=== PATIENT | female | born 1945 | race Caucasian/White ===

== ENCOUNTER → 2018-03-06 | Outpatient (REF) | payer MEDICARE ==
[~2018-03-06] MED LIST: NAPROSYN500 MG PO
[2018-03-06 09:42] LABS: PROTHROMBIN TIME 20.9 SECONDS (9.0-12.5)
== END | disposition home or self-care (01) ==
LOC: LAB 08:51
PROVIDERS: ATTEND Internal Medicine
DX: I82.413 Acute embolism and thrombosis of femoral vein, bilateral (principal)

== ENCOUNTER 2018-05-18 07:25 | Emergency (ER) | payer MEDICARE ==
[~2018-05-18] VITALS: Ht 152.4 cm; Wt 59.0 kg
[2018-05-18] MEDS ORDERED: CLOPIDOGREL75 MG PO (07:44)
[2018-05-18] MEDS ORDERED: ATORVASTATIN CA10 MG PO (07:44)
[2018-05-18] MEDS ORDERED: WARFARIN2.5 MG PO (07:46)
[2018-05-18] MEDS ORDERED: AMLODIPINE5 MG PO (07:47)
[2018-05-18 08:23] LABS: HEMATOCRIT 38.3 % (37.0-47.0); IMMATURE GRANULOCYTES 0.2 % (0.0-5.0); MEAN CORPUSCULAR HGB 28.6 pG CALC (26.0-32.0); MEAN CORPUSCULAR HGB CONC 31.3 g/L CALC (32.0-36.0); RED BLOOD COUNT 4.19 mill/uL (4.20-5.60); RED CELL DISTRI WIDTH 16.1 % (11.5-15.5)
[2018-05-18 08:36] LABS: INTERNATIONAL NORMALIZED RATIO 2.1 RATIO (0.7-1.3); PROTHROMBIN TIME 22.1 SECONDS (9.0-12.5)
[2018-05-18 08:38] LABS: ALBUMIN 3.9 g/dL (3.2-5.0); ALKALINE PHOSPHATASE 129 u/l (38-126); ANION GAP 15 (6-22 (CALC)); BILIRUBIN, TOTAL 0.5 mg/dL (0.0-1.4); BUN 21 mg/dL (8-23); BUN/CREATININE RATIO 32 (12-20 (CALC)); CARBON DIOXIDE 24 mmol/l (22-30); CHLORIDE 106 mmol/l (95-108); CREATININE 0.7 mg/dL (0.5-1.0); GFR > 60 ML/MIN (>=60 (CALC)); GFR FOR AFR.AMER. > 60 ML/MIN (>=60 (CALC)); MEAN CELL VOLUME 91.4 fL CALC (80.0-100.0); POTASSIUM 3.7 mmol/l (3.5-5.1); SGOT/AST 25 u/l (9-36); SODIUM 142 mmol/l (137-146); TOTAL PROTEIN 7.4 g/dL (6.3-8.2)
[2018-05-18] MEDS ORDERED: ULTRAM50 M1 PO (09:00)
[2018-05-18 09:04] VITALS: BP 160/70
== END 2018-05-18 09:36 | disposition home or self-care (01) ==
LOC: ED 07:25
PROVIDERS: Emergency Medicine
DX: M17.11 Unilateral primary osteoarthritis, right knee (principal); M25.561 Pain in right knee

== ENCOUNTER 2018-05-20 23:45 | Observation (INO) | payer MEDICARE ==
[~2018-05-20] VITALS: Ht 152.4 cm; Wt 62.7 kg
[~2018-05-20 23:45] MED LIST changes: +AMLODIPINE5 MG PO; +ATORVASTATIN CA10 MG PO; +CLOPIDOGREL75 MG PO; +ULTRAM50 M1 PO; +WARFARIN2.5 MG PO
[2018-05-21] MEDS ORDERED: LORTAB 1010 MG PO (00:33)
[2018-05-21 01:48] LABS: HEMATOCRIT 34.1 % (37.0-47.0); HEMOGLOBIN 10.7 g/dl (12.0-16.0); IMMATURE GRANULOCYTES 0.3 % (0.0-5.0); MEAN CELL VOLUME 91.7 fL CALC (80.0-100.0); MEAN CORPUSCULAR HGB 28.8 pG CALC (26.0-32.0); MEAN CORPUSCULAR HGB CONC 31.4 g/L CALC (32.0-36.0); NEUT# 7.4 thou/uL (2.00-7.15); RED BLOOD COUNT 3.72 mill/uL (4.20-5.60); RED CELL DISTRI WIDTH 16.4 % (11.5-15.5)
[2018-05-21 02:02] LABS: ALBUMIN 3.3 g/dL (3.2-5.0); ALKALINE PHOSPHATASE 123 u/l (38-126); ANION GAP 14 (6-22 (CALC)); BILIRUBIN, TOTAL 0.6 mg/dL (0.0-1.4); BUN 25 mg/dL (8-23); BUN/CREATININE RATIO 40 (12-20 (CALC)); CARBON DIOXIDE 24 mmol/l (22-30); CHLORIDE 104 mmol/l (95-108); CREATININE 0.6 mg/dL (0.5-1.0); GFR > 60 ML/MIN (>=60 (CALC)); GFR FOR AFR.AMER. > 60 ML/MIN (>=60 (CALC)); POTASSIUM 3.6 mmol/l (3.5-5.1); SGOT/AST 30 u/l (9-36); SODIUM 138 mmol/l (137-146); TOTAL PROTEIN 6.4 g/dL (6.3-8.2)
[2018-05-21 02:05] VITALS: BP 128/66
[2018-05-21 02:08] LABS: INTERNATIONAL NORMALIZED RATIO 2.1 RATIO (0.7-1.3); PROTHROMBIN TIME 22.3 SECONDS (9.0-12.5)
[2018-05-21 04:00] VITALS: BP 112/68
[2018-05-21 08:31] VITALS: BP 108/61
[2018-05-21 16:13] VITALS: BP 137/59
[2018-05-21 19:37] VITALS: BP 144/69
[2018-05-21 23:43] VITALS: BP 113/58
[2018-05-22 03:38] VITALS: BP 119/64
[2018-05-22 05:27] LABS: INTERNATIONAL NORMALIZED RATIO 1.9 RATIO (0.7-1.3); PROTHROMBIN TIME 19.4 SECONDS (9.0-12.5)
[2018-05-22 05:28] LABS: HEMATOCRIT 33.8 % (37.0-47.0); HEMOGLOBIN 10.6 g/dl (12.0-16.0); MEAN CELL VOLUME 91.1 fL CALC (80.0-100.0); MEAN CORPUSCULAR HGB 28.6 pG CALC (26.0-32.0); MEAN CORPUSCULAR HGB CONC 31.4 g/L CALC (32.0-36.0); NEUT# 5.57 thou/uL (2.00-7.15); RED BLOOD COUNT 3.71 mill/uL (4.20-5.60); RED CELL DISTRI WIDTH 16.4 % (11.5-15.5)
[2018-05-22 05:40] LABS: ALBUMIN 3.2 g/dL (3.2-5.0); ALKALINE PHOSPHATASE 124 u/l (38-126); ANION GAP 14 (6-22 (CALC)); BILIRUBIN, TOTAL 0.7 mg/dL (0.0-1.4); BUN 21 mg/dL (8-23); BUN/CREATININE RATIO 34 (12-20 (CALC)); CARBON DIOXIDE 25 mmol/l (22-30); CHLORIDE 101 mmol/l (95-108); CREATININE 0.6 mg/dL (0.5-1.0); GFR > 60 ML/MIN (>=60 (CALC)); GFR FOR AFR.AMER. > 60 ML/MIN (>=60 (CALC)); MAGNESIUM 1.9 mg/dL (1.6-2.3); POTASSIUM 3.9 mmol/l (3.5-5.1); SGOT/AST 29 u/l (9-36); SODIUM 136 mmol/l (137-146); TOTAL PROTEIN 6.3 g/dL (6.3-8.2)
[2018-05-22 08:56] VITALS: BP 147/55
[2018-05-22] MEDS ORDERED: FERRETTS325 MG PO (12:45)
[2018-05-22] MEDS ORDERED: VITAMIN B PO (12:45)
[2018-05-22] MEDS ORDERED: TRAMADOL HCL50 MG PO (17:29)
== END 2018-05-22 15:29 ==
LOC: ED 23:45 → ED-I 05-21 01:00 → ED 05-21 01:25 → MS2 05-21 01:26
PROVIDERS: Emergency Medicine; Internal Medicine Nephrology; ADMIT Internal Medicine; ATTEND Internal Medicine
DX: S30.0XXA Contusion of lower back and pelvis, initial encounter (principal); S80.11XA Contusion of right lower leg, initial encounter; S80.12XA Contusion of left lower leg, initial encounter; M15.9 Polyosteoarthritis, unspecified; I10 Essential (primary) hypertension; E78.5 Hyperlipidemia, unspecified; H91.90 Unspecified hearing loss, unspecified ear; L89.151 Pressure ulcer of sacral region, stage 1; D50.9 Iron deficiency anemia, unspecified; W19.XXXA Unspecified fall, initial encounter; Y92.009 Unspecified place in unspecified non-institutional (private) residence as the place of occurrence of the external cause; Z79.02 Long term (current) use of antithrombotics/antiplatelets; Z79.01 Long term (current) use of anticoagulants; Z86.73 Personal history of transient ischemic attack (TIA), and cerebral infarction without residual deficits; Z86.718 Personal history of other venous thrombosis and embolism; Z91.81 History of falling
CPT/HCPCS: J1756; J3420

== ENCOUNTER 2021-11-09 14:31 | Inpatient (IN) | payer MEDICARE, OTHER ==
[~2021-11-09] VITALS: Wt 65.0 kg
[2021-11-09] VITALS (28 sets, daily range): BP systolic 91–141; BP diastolic 40–84
[~2021-11-09 14:31] MED LIST changes: +FERRETTS325 MG PO; +LORTAB 1010 MG PO; +TRAMADOL HCL50 MG PO; +VITAMIN B PO
[2021-11-09] MEDS ORDERED: CLOPIDOGREL75 MG PO (15:12)
[2021-11-09] MEDS ORDERED: LIPITOR20 M1 PO (15:12)
[2021-11-09] MEDS ORDERED: MOXIFLOXACIN H400 MG PO (15:13)
[2021-11-09] MEDS ORDERED: PROBIOTI2 PO (15:15)
[2021-11-09 15:16] LABS: IMMATURE GRANULOCYTES 1.2 % (0.0-5.0); MEAN CORPUSCULAR HGB 27.7 pG CALC (26.0-32.0); MEAN CORPUSCULAR HGB CONC 32.9 g/dL CAL (32.0-36.0); NEUT# 8.97 thou/uL (2.00-7.15); RED BLOOD COUNT 4.99 mill/uL (4.20-5.60)
[2021-11-09] MEDS ORDERED: TYLENOL325 M2 PO (15:18)
[2021-11-09 15:19] LABS: HEMOGLOBIN 13.8 g/dl (12.0-16.0); MEAN CELL VOLUME 84.2 fL CALC (80.0-100.0)
[2021-11-09] MEDS ORDERED: GERI-TUSSI100 MG/51 PO (15:19)
[2021-11-09] MEDS ORDERED: DULCOLAX10 MG RE (15:19)
[2021-11-09] MEDS ORDERED: PEG 3350 PO (15:22)
[2021-11-09 15:44] LABS: CREATININE 3.6 mg/dL (0.5-1.0)
[2021-11-09 15:45] LABS: ALBUMIN 4.5 g/dL (3.2-5.0); BILIRUBIN, TOTAL 0.4 mg/dL (0.0-1.4); POTASSIUM 7.3 mmol/l (3.5-5.1); TOTAL PROTEIN 9.6 g/dL (6.3-8.2)
[2021-11-09 17:24] LABS: URINE BILIRUBIN - DIPSTICK NEGATIVE (NEGATIVE); URINE BLOOD DIPSTICK LARGE (NEGATIVE); URINE GLUCOSE - DIPSTICK 100 mg/dL (NEGATIVE); URINE KETONE NEGATIVE (NEGATIVE); URINE PROTEIN - DIPSTICK 100 mg/dL (NEG-TRACE); URINE UROBILINOGEN - DIPSTICK 0.2 E.U./dL (0.2)
[2021-11-09 17:25] LABS: URINE COLOR AMBER; URINE LEUK ESTERASE LARGE (NEGATIVE); URINE NITRITE - DIPSTICK NEGATIVE (Negative)
[2021-11-09 17:40] LABS: URINE RBC TNTC RBC/hpf (0-5)
[2021-11-09 17:41] LABS: URINE WBC TNTC WBC/hpf (0-5)
[2021-11-09 19:26] LABS: CREATININE 2.8 mg/dL (0.5-1.0)
[2021-11-09 19:30] LABS: POTASSIUM 5.7 mmol/l (3.5-5.1)
[2021-11-09 23:37] LABS: CREATININE 2.8 mg/dL (0.5-1.0)
[2021-11-09 23:38] LABS: POTASSIUM 5.6 mmol/l (3.5-5.1)
[2021-11-10] VITALS (28 sets, daily range): BP systolic 81–151; BP diastolic 32–66
[2021-11-10 05:31] LABS: MEAN CELL VOLUME 89.1 fL CALC (80.0-100.0); MEAN CORPUSCULAR HGB 28.3 pG CALC (26.0-32.0); MEAN CORPUSCULAR HGB CONC 31.8 g/dL CAL (32.0-36.0); RED BLOOD COUNT 3.85 mill/uL (4.20-5.60); RED CELL DISTRI WIDTH 15.3 % (11.5-15.5)
[2021-11-10 05:42] LABS: HEMATOCRIT 34.3 % (37.0-47.0); HEMOGLOBIN 10.9 g/dl (12.0-16.0)
[2021-11-10 05:43] LABS: CREATININE 2.6 mg/dL (0.5-1.0); MAGNESIUM 1.6 mg/dL (1.6-2.3)
[2021-11-10 05:44] LABS: POTASSIUM 5.3 mmol/l (3.5-5.1)
[2021-11-10 13:37] LABS: CREATININE 2.3 mg/dL (0.5-1.0); POTASSIUM 4.8 mmol/l (3.5-5.1)
[2021-11-10 18:18] LABS: CREATININE 2.2 mg/dL (0.5-1.0); POTASSIUM 4.8 mmol/l (3.5-5.1)
[2021-11-11] VITALS (10 sets, daily range): BP systolic 92–113; BP diastolic 37–78
[2021-11-11 00:45] LABS: CREATININE 2.1 mg/dL (0.5-1.0)
[2021-11-11 00:48] LABS: POTASSIUM 3.7 mmol/l (3.5-5.1)
[2021-11-11 06:13] LABS: HEMOGLOBIN 10.4 g/dl (12.0-16.0); IMMATURE GRANULOCYTES 1.1 % (0.0-5.0); MEAN CORPUSCULAR HGB 28.3 pG CALC (26.0-32.0); MEAN CORPUSCULAR HGB CONC 32.5 g/dL CAL (32.0-36.0); NEUT# 5.39 thou/uL (2.00-7.15); RED BLOOD COUNT 3.68 mill/uL (4.20-5.60); RED CELL DISTRI WIDTH 15.3 % (11.5-15.5)
[2021-11-11 06:20] LABS: POTASSIUM 3.8 mmol/l (3.5-5.1)
[2021-11-11 06:22] LABS: POTASSIUM 3.7 mmol/l (3.5-5.1)
[2021-11-11 06:35] LABS: ALBUMIN 2.9 g/dL (3.2-5.0)
[2021-11-12] VITALS (7 sets, daily range): BP systolic 99–144; BP diastolic 40–63
[2021-11-12 07:58] LABS: HEMATOCRIT 30.3 % (37.0-47.0); MEAN CELL VOLUME 85.4 fL CALC (80.0-100.0); MEAN CORPUSCULAR HGB 28.2 pG CALC (26.0-32.0); RED BLOOD COUNT 3.55 mill/uL (4.20-5.60); RED CELL DISTRI WIDTH 15.3 % (11.5-15.5)
[2021-11-12 08:10] LABS: ALBUMIN 2.9 g/dL (3.2-5.0); CREATININE 1.7 mg/dL (0.5-1.0); MAGNESIUM 1.6 mg/dL (1.6-2.3)
[2021-11-12 08:23] LABS: POTASSIUM 2.7 mmol/l (3.5-5.1)
[2021-11-13] VITALS (7 sets, daily range): BP systolic 100–126; BP diastolic 41–58
[2021-11-13 05:52] LABS: HEMATOCRIT 28.5 % (37.0-47.0); MEAN CELL VOLUME 89.1 fL CALC (80.0-100.0); MEAN CORPUSCULAR HGB 28.1 pG CALC (26.0-32.0); MEAN CORPUSCULAR HGB CONC 31.6 g/dL CAL (32.0-36.0); RED BLOOD COUNT 3.2 mill/uL (4.20-5.60); RED CELL DISTRI WIDTH 15.5 % (11.5-15.5)
[2021-11-13 06:18] LABS: ALBUMIN 2.5 g/dL (3.2-5.0); CREATININE 1.4 mg/dL (0.5-1.0); MAGNESIUM 1.5 mg/dL (1.6-2.3); POTASSIUM 3.1 mmol/l (3.5-5.1)
[2021-11-14 01:04] VITALS: BP 96/35
[2021-11-14 03:54] VITALS: BP 106/40
[2021-11-14 06:41] LABS: HEMATOCRIT 30.1 % (37.0-47.0); HEMOGLOBIN 9.5 g/dl (12.0-16.0); MEAN CELL VOLUME 89.9 fL CALC (80.0-100.0); MEAN CORPUSCULAR HGB 28.4 pG CALC (26.0-32.0); MEAN CORPUSCULAR HGB CONC 31.6 g/dL CAL (32.0-36.0); RED BLOOD COUNT 3.35 mill/uL (4.20-5.60); RED CELL DISTRI WIDTH 15.5 % (11.5-15.5)
[2021-11-14 07:09] LABS: ALBUMIN 2.7 g/dL (3.2-5.0); CREATININE 1.4 mg/dL (0.5-1.0)
[2021-11-14 07:10] LABS: MAGNESIUM 2.2 mg/dL (1.6-2.3); POTASSIUM 3.8 mmol/l (3.5-5.1)
[2021-11-14 08:22] VITALS: BP 113/46
[2021-11-14] MEDS ORDERED: SOD CHLORIDE1 GM PO (09:50)
[2021-11-14 10:32] VITALS: BP 111/49
== END 2021-11-14 14:15 | DRG 640 ==
LOC: ED 14:31 → ED-I 19:27 → ED 20:29 → ICU 20:30 → MS2 23:01
PROVIDERS: Family Medicine; Internal Medicine; Internal Medicine Nephrology; ADMIT Hospitalist; ATTEND Hospitalist
PROC: 0T9B70Z Drainage of Bladder with Drainage Device, Via Natural or Artificial Opening (ICD-10-PCS; principal; 2021-11-09)
DX: E87.1 Hypo-osmolality and hyponatremia (principal); G93.41 Metabolic encephalopathy; N39.0 Urinary tract infection, site not specified; N17.9 Acute kidney failure, unspecified; E87.5 Hyperkalemia; I95.9 Hypotension, unspecified; E86.9 Volume depletion, unspecified; I12.9 Hypertensive chronic kidney disease with stage 1 through stage 4 chronic kidney disease, or unspecified chronic kidney disease; N18.31 Chronic kidney disease, stage 3a; E83.42 Hypomagnesemia; E87.2 Acidosis; E78.5 Hyperlipidemia, unspecified; H91.90 Unspecified hearing loss, unspecified ear; F03.90 Unspecified dementia, unspecified severity, without behavioral disturbance, psychotic disturbance, mood disturbance, and anxiety; N20.0 Calculus of kidney; Z86.73 Personal history of transient ischemic attack (TIA), and cerebral infarction without residual deficits; Z86.718 Personal history of other venous thrombosis and embolism; Z79.02 Long term (current) use of antithrombotics/antiplatelets; Z87.442 Personal history of urinary calculi; Z20.822 Contact with and (suspected) exposure to COVID-19
CPT/HCPCS: J3475

== ENCOUNTER 2022-01-12 16:11 | Emergency (ER) | payer MEDICARE, OTHER ==
[2022-01-12] VITALS (8 sets, daily range): BP systolic 109–140; BP diastolic 40–67
[~2022-01-12] VITALS: Ht 157.5 cm; Wt 58.9 kg
[~2022-01-12 16:11] MED LIST changes: +DULCOLAX10 MG RE; +GERI-TUSSI100 MG/51 PO; +LIPITOR20 M1 PO; +MOXIFLOXACIN H400 MG PO; +PEG 3350 PO; +PROBIOTI2 PO; +SOD CHLORIDE1 GM PO; +TYLENOL325 M2 PO
[2022-01-12 16:43] LABS: HEMATOCRIT 33.3 % (37.0-47.0); HEMOGLOBIN 10.7 g/dl (12.0-16.0); IMMATURE GRANULOCYTES 0.2 % (0.0-5.0); MEAN CORPUSCULAR HGB 28.6 pG CALC (26.0-32.0); MEAN CORPUSCULAR HGB CONC 32.1 g/dL CAL (32.0-36.0); NEUT# 5.61 thou/uL (2.00-7.15); RED BLOOD COUNT 3.74 mill/uL (4.20-5.60); RED CELL DISTRI WIDTH 16.8 % (11.5-15.5); URINE BILIRUBIN - DIPSTICK NEGATIVE (NEGATIVE); URINE BLOOD DIPSTICK MODERATE (NEGATIVE); URINE COLOR YELLOW; URINE GLUCOSE - DIPSTICK NEGATIVE (NEGATIVE); URINE KETONE NEGATIVE (NEGATIVE); URINE PROTEIN - DIPSTICK 30 mg/dL (NEG-TRACE); URINE SPECIFIC GRAVITY 1.015; URINE UROBILINOGEN - DIPSTICK 0.2 E.U./dL (0.2)
[2022-01-12 16:44] LABS: URINE LEUK ESTERASE LARGE (NEGATIVE); URINE NITRITE - DIPSTICK NEGATIVE (Negative)
[2022-01-12 16:49] LABS: URINE BACTERIA MANY hpf; URINE SQUAMOUS EPITHELIAL CELL MANY EPI/hpf (0-FEW); URINE WBC >100 WBC/hpf (0-5)
[2022-01-12 17:00] LABS: ALBUMIN 3.4 g/dL (3.2-5.0); ALKALINE PHOSPHATASE 89 u/l (38-126); ANION GAP 12 (6-22 (CALC)); BUN 21 mg/dL (8-23); BUN/CREATININE RATIO 15 (12-20 (CALC)); CARBON DIOXIDE 27 mmol/l (22-30); CHLORIDE 102 mmol/l (95-108); CREATININE 1.4 mg/dL (0.5-1.0); GFR FOR AFR.AMER. 44 ML/MIN (>=60 (CALC)); GFR OTHER RACES 36 ML/MIN (>=60 (CALC)); POTASSIUM 3.5 mmol/l (3.5-5.1); SGOT/AST 18 u/l (9-36); SODIUM 137 mmol/l (137-146)
[2022-01-12 17:06] LABS: BILIRUBIN, TOTAL 0.3 mg/dL (0.0-1.4)
[2022-01-12] MEDS ORDERED: NITROFURANTN100 M2 PO (17:19)
== END 2022-01-12 18:31 | disposition home or self-care (01) ==
LOC: ED 16:11
PROVIDERS: Family Medicine
DX: N39.0 Urinary tract infection, site not specified (principal); I10 Essential (primary) hypertension; E78.5 Hyperlipidemia, unspecified; H91.90 Unspecified hearing loss, unspecified ear; B96.20 Unspecified Escherichia coli [E. coli] as the cause of diseases classified elsewhere; Z86.718 Personal history of other venous thrombosis and embolism; Z86.73 Personal history of transient ischemic attack (TIA), and cerebral infarction without residual deficits

== ENCOUNTER 2024-01-15 13:31 | Inpatient (IN) | payer MEDICARE, OTHER ==
[~2024-01-15] VITALS: Ht 157.5 cm; Wt 56.8 kg
[2024-01-15] VITALS (18 sets, daily range): BP systolic 101–133; BP diastolic 39–61
[~2024-01-15 13:31] MED LIST changes: +NITROFURANTN100 M2 PO; +TAMIFLU SUSP 6MG/ML PO; +ZOLOFT25 MG PO
--- NOTE | 2024-01-15 13:31 | NUR ---
PATIENT ARRIVED TO ER VIA POV. PATIENT WHEELED TO ROOM BY ER STAFF. PATIENT AWAKE AND STABLE. NO DISTRESS NOTED. PHYSICIAN NOTIFEID.
[2024-01-15 13:57] LABS: BASO% 0.4 % (0-3); EOS% 1.3 % (0-8); HEMATOCRIT 37.9 % (37.0-47.0); HEMOGLOBIN 12.2 g/dl (12.0-16.0); IMMATURE GRANULOCYTES 0.3 % (0.0-5.0); MEAN CORPUSCULAR HGB 29.6 pG CALC (26.0-32.0); MEAN CORPUSCULAR HGB CONC 32.2 g/dL CAL (32.0-36.0); MONO% 6.1 % (2-13); NEUT# 6.43 thou/uL (2.00-7.15); NEUT% 57.9 % (42-76); RED BLOOD COUNT 4.12 mill/uL (4.20-5.60); RED CELL DISTRI WIDTH 15.9 % (11.5-15.5)
[2024-01-15 14:26] LABS: ALBUMIN 4.3 g/dL (3.2-5.0); BILIRUBIN, TOTAL 0.6 mg/dL (0.02-1.3); MAGNESIUM 2.2 mg/dL (1.6-2.3); POTASSIUM 3.4 mmol/l (3.5-5.1); TOTAL PROTEIN 8.5 g/dL (6.3-8.2)
[2024-01-15 14:32] LABS: CREATININE 2.7 mg/dL (0.5-1.0)
[2024-01-15] MEDS ORDERED: SODIUM CHLORIDE 0.9% 1,000 ML IV ONE (15:30)
[2024-01-15 16:46] LABS: URINE BILIRUBIN - DIPSTICK Negative (NEGATIVE); URINE BLOOD DIPSTICK Large (NEGATIVE); URINE GLUCOSE - DIPSTICK 100 mg/dL (NEGATIVE); URINE KETONE Negative (NEGATIVE); URINE PROTEIN - DIPSTICK >=300 mg/dL (NEG-TRACE); URINE UROBILINOGEN - DIPSTICK 0.2 E.U./dL (0.2)
[2024-01-15 16:50] LABS: URINE COLOR Yellow; URINE LEUK ESTERASE Large (NEGATIVE); URINE NITRITE - DIPSTICK Positive (Negative)
[2024-01-15 16:52] LABS: URINE BACTERIA MODERATE hpf; URINE SQUAMOUS EPITHELIAL CELL MODERATE EPI/hpf (0-FEW); URINE WBC >100 WBC/hpf (0-5)
[2024-01-15] MEDS ORDERED: MAGNESIUM HYDROXIDE 30 ML UDC PO PRN (17:05)
[2024-01-15] MEDS ORDERED: SODIUM CHLORIDE 0.9% 1,000 ML IV PRN (17:05)
[2024-01-15] MEDS ORDERED: ACETAMINOPHEN 325 MG/TAB PO PRN (17:05)
--- NOTE | 2024-01-15 17:58 | NUR ---
PT ARRIVED TO [facility] VIA STRETCHER WITH TELEHEALTH NURSERAJENDRA RODRIGUEZ. PT UNABLE TO STAND FROM STRETCHER TO BED. ORIENTATED PT TO ROOM AND CALL LOTT SYSTEM. PT ADMISSION ASSESSMENT COMPLETED. PT IS HARD OF HEARING. DNR BAND PLACED ALONG WITH FALL/RISK AND ALLERGY BAND. IV INTACT/FLUSHED. PT LEGS DRIFT TO BED, ABLE TO MOVE UPPER EXTREMETIES. PT ABLE TO OBEY COMMANDS. TELE MONITOR IN PLCE CONTINIOUS MONITORING PER ED. FALL/SAFTEY PRECAUTION IN PLACE. CALL LIGHT WITHIN REACH
--- NOTE | 2024-01-15 20:00 | NUR ---
BEDSIDE SHIFT REPORT COMPLETED. RESP EVEN AND UNLABORED. ALERT ORIENTED TO SELF ONLY. BED ALARM ON FOR SAFETY. CALL LIGHT IN REACH.
[2024-01-16] VITALS (11 sets, daily range): BP systolic 98–116; BP diastolic 33–45
--- NOTE | 2024-01-16 | NUR ---
RESTING IN BED. ALERT, CONFUSED. ANSWERS MOST QUESTIONS WITH NONSENSICAL ANSWERS. ABLE TO MOVVE ALL EXTREMIDIES. BED ALARM ON FOR SAFETY. HAS NOT ATTEMPTED TO GET OUT OF BED. INCONT CARE PROVIDED NEEDED. ABLE TO TURN SELF.
[2024-01-16] MEDS ORDERED: COLACE100 MG PO (01:15)
[2024-01-16] MEDS ORDERED: POT CHLORIDE10 ME5 PO (01:17)
[2024-01-16] MEDS ORDERED: MIRTAZAPINE15 MG PO (01:19)
[2024-01-16] MEDS ORDERED: MIDODRINE5 MG PO (01:22)
--- NOTE | 2024-01-16 04:38 | NUR ---
RESTING IN BED WITH EYES CLOSED. RESP EVEN AND UNLABORED. NO S/S OF DISTRESS. IV FLUIDS INFUSION WITH NO S/S OF REDNESS OR SWELLING. INC CARE PROVIDED NEEDED.
--- NOTE | 2024-01-16 07:05 | NUR ---
PT SITTING UP IN BED WATCHING TV, PT IS ALERT AND ORIENTED TO PERSON AND PLACE, PT IS HARD OF HEARING, PULSES ARE PERRL, NORMAL S1 S2 HEART SOUNDS, STRONG RADIAL AND PEDAL PULSES, ABD SOFT AND DISTENDED WITH ACTIVE BOWEL SOUNDS, 22G RW IV WITH FLUIDS INFUSING AT PRESCRIBED RATE, SAFETY MEASURES REINFORCED, CALL LOTT WITHIN REACH
[2024-01-16 07:47] LABS: HEMATOCRIT 33.5 % (37.0-47.0); HEMOGLOBIN 10.4 g/dl (12.0-16.0); MEAN CELL VOLUME 94.6 fL CALC (80.0-100.0); MEAN CORPUSCULAR HGB 29.4 pG CALC (26.0-32.0); RED BLOOD COUNT 3.54 mill/uL (4.20-5.60); RED CELL DISTRI WIDTH 16.2 % (11.5-15.5)
--- NOTE | 2024-01-16 08:05 | NUR ---
DR MOSS AND PAVEL HAN AT BEDSIDE DISCUSSING THE PLAN OF CARE
[2024-01-16 08:27] LABS: CREATININE 2.4 mg/dL (0.5-1.0); POTASSIUM 3.6 mmol/l (3.5-5.1)
[2024-01-16 08:28] LABS: ALBUMIN 3.2 g/dL (3.2-5.0); BILIRUBIN, TOTAL 0.3 mg/dL (0.02-1.3); TOTAL PROTEIN 6.3 g/dL (6.3-8.2)
[2024-01-16] MEDS ORDERED: CLOPIDOGREL BISULFATE 75 MG/TAB TAB PO SCH (09:00)
[2024-01-16] MEDS ORDERED: SERTRALINE HCL 25 MG/TAB PO SCH (09:00)
--- NOTE | 2024-01-16 10:19 | NUR ---
PT'S DAUGHTER AT BEDSIDE VISITING WITH PT
--- NOTE | 2024-01-16 10:41 | NUR ---
PT WORKING WITH PATIENT
--- NOTE | 2024-01-16 12:10 | NUR ---
PT SITTING UP IN BED EATING LUNCH, DAUGHTER REMAINS AT BEDSIDE, PT DENIES ANY NEEDS AT THIS TIME, CALL LOTT WITHIN REACH
--- NOTE | 2024-01-16 16:00 | NUR ---
PT LAYING IN BED RESTING WITH EYES CLOSED, AROUSES EASILY TO VERBAL STIMULI, PT VERBALIZES NO NEEDS AT THIS TIME, CALL LOTT WITHIN REACH
--- NOTE | 2024-01-16 19:30 | NUR ---
PATIENT IN ROOM RESTING IN BED WATCHING TV. BED SIDE REPORT COMPLETED. EQUAL CHEST RISES. PULSES EQUAL. ALERT TO PERSON ONLY. PUPILS EQUAL 3MM. EQUAL ROM ON ALL EXTREMITIES. BED AT LOWEST POSITION. CALL LIGHT WITHIN REACH.
[2024-01-16] MEDS ORDERED: MIRTAZAPINE 15 MG/TAB PO SCH (21:00)
--- NOTE | 2024-01-17 00:05 | NUR ---
PATIENT IN BED ASLEEP WITH EYES CLOSED. RESPONDS TO VERBAL STIMULI. EQUAL UNLABORED BREATHING. NO VISUAL SIGNS OF DISTRESS. BED AT LOWEST POSITION, CALL LIGHT WITHIN REACH.
[2024-01-17 03:37] VITALS: BP 110/48
--- NOTE | 2024-01-17 04:01 | NUR ---
PATIENT IN BED AWAKE WATCHING TV. RESPONDS TO VERBAL STIMULI. PATIENT HAS SUM SLIGHT HEARING IMPAREMENT. RESPIRATIONS EVEN AND UNLABORED. BED AT LOWEST POSITION CALL LIGHT WITHIN REACH.
[2024-01-17 04:44] VITALS: BP 110/48
[2024-01-17 06:12] LABS: BASO% 0.5 % (0-3); EOS% 2.7 % (0-8); HEMATOCRIT 29.1 % (37.0-47.0); HEMOGLOBIN 9.3 g/dl (12.0-16.0); IMMATURE GRANULOCYTES 0.5 % (0.0-5.0); LYMPH% 32.6 % (15-41); MEAN CELL VOLUME 95.1 fL CALC (80.0-100.0); MEAN CORPUSCULAR HGB 30.4 pG CALC (26.0-32.0); MONO% 7.5 % (2-13); NEUT# 3.37 thou/uL (2.00-7.15); NEUT% 56.2 % (42-76); RED BLOOD COUNT 3.06 mill/uL (4.20-5.60); RED CELL DISTRI WIDTH 16.3 % (11.5-15.5)
[2024-01-17 06:38] LABS: ALBUMIN 2.8 g/dL (3.2-5.0); BILIRUBIN, TOTAL 0.3 mg/dL (0.02-1.3); CREATININE 2.1 mg/dL (0.5-1.0); MAGNESIUM 1.9 mg/dL (1.6-2.3); POTASSIUM 3.5 mmol/l (3.5-5.1); TOTAL PROTEIN 5.9 g/dL (6.3-8.2)
[2024-01-17 06:39] VITALS: BP 108/53
--- NOTE | 2024-01-17 08:03 | NUR ---
PATIENT LYING SEMI-FOWLERS IN BED EATING BREAKFAST. PATIENT A&OX1. BREATHING EVEN AND UNLABORED ON ROOM AIR. TELE INTACT. PUREWICK IN PLACE. IV IN RT WRIST INFUSING NS@100MLS; SITE CLEAN AND INTACT. DENIES ANY N/D/V AT THIS TIME. DENIES ANY PAIN. ASSESSMENT COMPLETED. BED IN LOWEST POSITION; BED ALARM ACTIVE. CALL LIGHT WITHIN REACH; EDUCATED PT ON USE.
--- NOTE | 2024-01-17 08:07 | NUR ---
IN ROOM WITH PT DISCUSSING PLAN OF CARE.
[2024-01-17] MEDS ORDERED: KEFLEX500 MG PO (08:42)
[2024-01-17 11:13] VITALS: BP 112/62
--- NOTE | 2024-01-17 12:34 | NUR ---
PATIENT LYING SEMI-FOWLERS IN BED RESTING WITH EYES CLOSED. BREATHING EVEN AND UNLABORED ON ROOM AIR. DAUGHTER AT BEDSIDE. TELE INTACT. PUREWICK IN PLACE. NO SIGNS OF DISTRESS NOTED. BED IN LOWEST POSITION. CALL LIGHT WITHIN REACH.
--- NOTE | 2024-01-17 14:46 | NUR ---
REPORT GIVEN TO NURSE ANGELA RODRIGUEZ AT [facility].
[2024-01-17 16:06] VITALS: BP 96/50
--- NOTE | 2024-01-17 16:36 | NUR ---
PATIENT LYING IN BED WATCHING TV. BREATHING EVEN AND UNLABORED ON ROOM AIR. TELE INATCT. PUREWICK IN PLACE. DENIES ANY N/D/V. DENIES ANY PAIN. PT SCHEDULED TO DC TO REHAB [place]OUND [place]. NO NEEDS AT THIS TIME.
[2024-01-17 18:09] VITALS: BP 95/43
--- NOTE | 2024-01-17 18:40 | NUR ---
Discharge instructions given. Patient verbalizes understanding of same. Discharged in stable condition via Wheelchair to [facility] with staff. All belongings sent with pt. IV removed; skin intact. Tele #4 removed and placed in bin at nursing station.
== END 2024-01-17 18:40 | DRG 683 ==
LOC: ED 13:31 → ED-I 16:50 → ED 17:21 → MS2 17:22
PROVIDERS: Nurse Practitioner; Nurse Practitioner Family; ADMIT Internal Medicine; ATTEND Internal Medicine
DX: N17.9 Acute kidney failure, unspecified (principal); E87.1 Hypo-osmolality and hyponatremia; N30.01 Acute cystitis with hematuria; I12.9 Hypertensive chronic kidney disease with stage 1 through stage 4 chronic kidney disease, or unspecified chronic kidney disease; N18.4 Chronic kidney disease, stage 4 (severe); E86.0 Dehydration; E78.5 Hyperlipidemia, unspecified; H91.90 Unspecified hearing loss, unspecified ear; Z86.73 Personal history of transient ischemic attack (TIA), and cerebral infarction without residual deficits; Z87.442 Personal history of urinary calculi

== ENCOUNTER 2024-08-05 19:54 | Inpatient (IN) | payer MEDICARE, OTHER ==
[~2024-08-05] VITALS: Ht 5.1 cm; Wt 80.0 kg
[~2024-08-05 19:54] MED LIST changes: +COLACE100 MG PO; +KEFLEX500 MG PO; +MIDODRINE5 MG PO; +MIRTAZAPINE15 MG PO; +POT CHLORIDE10 ME5 PO
--- NOTE | 2024-08-05 19:54 | NUR ---
PATIENT TO ROOM 10 VIA EMS
[2024-08-05] MEDS ORDERED: DIATRIZOATE MEGLUMINE & SODIUM 30 ML/BTL PO ONE (20:05)
[2024-08-05 20:37] LABS: BASO% 0.2 % (0-3); EOS% 0.2 % (0-8); HEMATOCRIT 36.5 % (37.0-47.0); HEMOGLOBIN 11.9 g/dl (12.0-16.0); IMMATURE GRANULOCYTES 0.2 % (0.0-5.0); LYMPH% 14.5 % (15-41); MEAN CELL VOLUME 89.7 fL CALC (80.0-100.0); MEAN CORPUSCULAR HGB 29.2 pG CALC (26.0-32.0); MEAN CORPUSCULAR HGB CONC 32.6 g/dL CAL (32.0-36.0); NEUT# 12.17 thou/uL (2.00-7.15); NEUT% 80.9 % (42-76); RED BLOOD COUNT 4.07 mill/uL (4.20-5.60); RED CELL DISTRI WIDTH 15.4 % (11.5-15.5)
[2024-08-05 20:44] LABS: INTERNATIONAL NORMALIZED RATIO 1.1 RATIO (0.7-1.3); PROTHROMBIN TIME 11.8 SECONDS (9.0-12.5)
[2024-08-05 20:51] LABS: MAGNESIUM 2.3 mg/dL (1.6-2.3); POTASSIUM 3.3 mmol/l (3.5-5.1)
[2024-08-05 20:55] LABS: ALBUMIN 4.5 g/dL (3.2-5.0); BILIRUBIN, TOTAL 0.6 mg/dL (0.02-1.3); CREATININE 3.1 mg/dL (0.5-1.0)
--- NOTE | 2024-08-05 22:00 | NUR ---
PATIENT RESTING IN BED, NAD
[2024-08-05 22:48] VITALS: BP 109/64
[2024-08-05] MEDS ORDERED: SODIUM CHLORIDE 0.9% 1,000 ML IV ONE ×2 (22:55→23:05)
[2024-08-05 23:00] VITALS: BP 120/61
[2024-08-05] MEDS ORDERED: PIPERACILLIN Sodium-Tazobactam 3.375 GM in SODIUM CHLORIDE 0.9% 100 ML IV ONE (23:05)
--- NOTE | 2024-08-05 23:15 | NUR ---
GASTROGRAPHIN 2/3 GIVEN
[2024-08-05 23:30] VITALS: BP 119/58
[2024-08-06] VITALS (11 sets, daily range): BP systolic 90–130; BP diastolic 42–74
--- NOTE | 2024-08-06 00:20 | NUR ---
PATIENT TO CT
--- NOTE | 2024-08-06 01:15 | NUR ---
WRITTER AND ADDITONAL STAFF AT BEDSIDE CLEANING PATIENT UP. ASKED EDP IF HE WOULD LIKE A GI PANEL, SUGGESTING TO TEST FOR CDIFF OR NOROVIRUS. PER EDP THIS IS NOT NECESSARY.
[2024-08-06] MEDS ORDERED: ALUM & MAG HYDROX-SIMETHICONE 30 ML PO PRN (01:30)
[2024-08-06] MEDS ORDERED: ONDANSETRON 4 MG/TAB ODT PO PRN (01:30)
[2024-08-06] MEDS ORDERED: ONDANSETRON HCl 4 MG/2 ML SDV IV PRN (01:30)
[2024-08-06] MEDS ORDERED: FAMOTIDINE 10MG/ML 2ML SDV IV PRN (01:30)
[2024-08-06] MEDS ORDERED: Polyethylene Glycol 3350 17 GM/PKT PO PRN (01:30)
[2024-08-06] MEDS ORDERED: IBUPROFEN 800 MG/TAB PO PRN (01:30)
[2024-08-06] MEDS ORDERED: SODIUM CHLORIDE 0.45% 1,000 ML IV PRN ×2 (01:30→01:45)
[2024-08-06] MEDS ORDERED: DOXYCYC MONO100 M3 PO (02:19)
[2024-08-06] MEDS ORDERED: MEMANTINE HYDRO10 MG PO (02:19)
--- NOTE | 2024-08-06 02:36 | NUR ---
PATIENT RESTING IN BED, NAD
--- NOTE | 2024-08-06 03:30 | NUR ---
PATIENT WASHED UP AT THIS TIME. SMALL SMEAR BM NOTED.
--- NOTE | 2024-08-06 04:01 | NUR ---
PATIENT TRASNPORTED TO MED SURG ROOM 270
--- NOTE | 2024-08-06 05:58 | NUR ---
RECEIVED REPORT FROM GENE PAGAN TRANSPORTE VIA BED, ARRIVED MS UNIT AT 0355, GENE ALERT TO NAME AND PLACE. EMS IV LEFT HAND PATENT FLUSHES WELL, HOOKED NS @ 125CC/HR, ON TELEMETRY # 6, LUNG SOUNDS CLEAR, REDNESS NOTED ON BUTTOCKS ANDERSON PERINEAL AREA. SKIN TEAR ON LETY AND SKIN TEAR ON LEFT LEE. ADMISSION ASSESSMENT COMPLETED, PATIENT IS GENE GILLETTE ORIENTED TO ROOM AND CALL LIGHT SYSTEM, BREATHING UNLABORED CALL LIGHT IN REACHED.SAFETY PRECAUTION IIN PLACED.
--- NOTE | 2024-08-06 06:37 | NUR ---
DIET UPDATED TO FULL LIQUID PER DR. SILVER.
[2024-08-06] MEDS ORDERED: PIPERACILLIN Sodium-Tazobactam 3.375 GM in SODIUM CHLORIDE 0.9% 100 ML IV SCH ×2 (08:00→14:00)
--- NOTE | 2024-08-06 08:34 | NUR ---
SHIFT CHANGE REPORT, PT SLEEPING IN SUPINE POSITION, MOUTH BREATHING EVEN AND NON-LABORED, IVF INFUSING, TELE MONITOR IN PLACE, CALL LOTT IN REACH AND BED LOCKED IN LOWEST POSITION.
[2024-08-06 10:03] LABS: BASO% 0.2 % (0-3); EOS% 1.4 % (0-8); HEMATOCRIT 34.6 % (37.0-47.0); HEMOGLOBIN 10.5 g/dl (12.0-16.0); IMMATURE GRANULOCYTES 0.1 % (0.0-5.0); MEAN CORPUSCULAR HGB 29.6 pG CALC (26.0-32.0); MEAN CORPUSCULAR HGB CONC 30.3 g/dL CAL (32.0-36.0); NEUT# 5.72 thou/uL (2.00-7.15); NEUT% 61.3 % (42-76); RED BLOOD COUNT 3.55 mill/uL (4.20-5.60); RED CELL DISTRI WIDTH 16.2 % (11.5-15.5)
[2024-08-06 10:05] LABS: MEAN CELL VOLUME 97.5 fL CALC (80.0-100.0)
[2024-08-06 10:17] LABS: ALBUMIN 4.1 g/dL (3.2-5.0); ALKALINE PHOSPHATASE 94 u/l (38-126); ANION GAP 18 (6-22 (CALC)); BILIRUBIN, TOTAL 0.8 mg/dL (0.02-1.3); BUN 68 mg/dL (8-23); BUN/CREATININE RATIO 23 (12-20 (CALC)); CARBON DIOXIDE 20 mmol/l (22-30); CHLORIDE 100 mmol/l (95-108); CREATININE 2.9 mg/dL (0.5-1.0); ESTIMATED GFR 16 ML/MIN (>=90 (CALC)); MAGNESIUM 2.4 mg/dL (1.6-2.3); POTASSIUM 3.1 mmol/l (3.5-5.1); SGOT/AST 39 u/l (9-36); SODIUM 134 mmol/l (137-146); TOTAL PROTEIN 8.4 g/dL (6.3-8.2)
--- NOTE | 2024-08-06 12:00 | NUR ---
MD REQUEST URINE CULTURE FROM STRAIGHT CATHETERIZATION BUT NURSE UNABLE TO COLLECT SAMPLE USING THAT MEDIUM, BRANDY AREA CLEANED AND PUREWICK CATHETER PLACED, SAMPLE COLLECTER AFTER APPORXIMATELLY 2 HRS AND ORAL FLUID INTAKE. SEVERE HEARING IMPAIRMENT BUT ABLE TO HEAR AND COMPREHEND FROM LEFT EAR, DAUGHTER IN ROOM AND ASSISTING WITH FEED.
[2024-08-06] MEDS ORDERED: POTASSIUM CHLORIDE 20 MEQ/TAB PO SCH (12:30)
[2024-08-06] MEDS ORDERED: POTASSIUM CHLORIDE 20 MEQ/PKT POWDER PO SCH (13:00)
[2024-08-06 13:03] LABS: URINE BILIRUBIN - DIPSTICK Negative (NEGATIVE); URINE BLOOD DIPSTICK Large (NEGATIVE); URINE CLARITY Cloudy; URINE GLUCOSE - DIPSTICK 100 mg/dL (NEGATIVE); URINE KETONE Negative (NEGATIVE); URINE LEUK ESTERASE Large (Negative); URINE NITRITE - DIPSTICK Negative (Negative); URINE PH 5.5 (4.5-8.0); URINE PROTEIN - DIPSTICK 100 mg/dL (NEG-TRACE); URINE UROBILINOGEN - DIPSTICK 0.2 E.U./dL (0.2)
[2024-08-06 13:04] LABS: URINE COLOR Yellow
[2024-08-06 13:22] LABS: URINE WBC >100 WBC/hpf (0-5)
[2024-08-06 13:23] LABS: URINE BACTERIA MANY hpf
--- NOTE | 2024-08-06 13:40 | NUR ---
CONTACTED DR MULLER IN REFERENCE TO A SURGICAL CONSULT AT 1340 HRS.
[2024-08-06] MEDS ORDERED: PIPERACILLIN Sodium-Tazobactam 2.25 GM in SODIUM CHLORIDE 0.9% 50 ML IV SCH (16:00)
--- NOTE | 2024-08-06 16:00 | NUR ---
BED LINNEN CHANGED, PERICARE GIVEN, SET UP FOR MEAL.
--- NOTE | 2024-08-06 20:00 | NUR ---
RECEIVED REPORT FROM NURSE GENE GREY RESTING IN BED, PATINET ALERT TO NAME ONLY, PATINET IS HARD OF HEARINMG, ONGOING IV NS @ 125CC/HR INFUSING WELL ON LFA. ON TELEMETRY, PATIENT PUREWICK DRAINING YELLOW CLOUDY AND PUNGENT URINE REDNESS NOTED ON VULVA AND BUTTOCK, PERICARE PROVIDED, CALL LIGHT ION REACHED, BED ALARM IN PLACED.
--- NOTE | 2024-08-06 23:37 | NUR ---
INCONTINENT OF BOWEL LIQUID, CONTINET CARE PROVIDED.BREATHING UNLABORED CALL LIGHT IN REACHED, BED ALARM I PLACED.
[2024-08-07 03:26] VITALS: BP 112/44
--- NOTE | 2024-08-07 04:22 | NUR ---
PATIENT RESTING IN BED, BREATHING EVEN UNLABORED, OCASSIONAL YELLING WHILE ASLEEP "BUGS", EASY TO AWAKEN, BREATHING UNLABORED CALL LIGHT WITHIN REACHED, BED ALARM IN PLACVED.
[2024-08-07 06:57] VITALS: BP 100/43
--- NOTE | 2024-08-07 07:52 | NUR ---
PT IS ALERT, ORIENTED TO SELF, , RE[facility]TS [facility] AND CURRENT YEAT "[birth year]" RESPIRATIONS ARE EVEN AND UNLABORED ON ROOM AIR, LUNGS ARE CLEAR THROUGHOUT, BOWEL SOUNDS ARE ACTIVE, PEDAL PULSES ARE PALPABLE TO TOUCH, PT DENIES PAIN AT THIS TIME.
[2024-08-07 09:24] LABS: BASO% 0.3 % (0-3); EOS% 2.9 % (0-8); HEMATOCRIT 32.7 % (37.0-47.0); HEMOGLOBIN 9.9 g/dl (12.0-16.0); IMMATURE GRANULOCYTES 0.2 % (0.0-5.0); LYMPH% 24.1 % (15-41); MEAN CELL VOLUME 97.9 fL CALC (80.0-100.0); MEAN CORPUSCULAR HGB 29.6 pG CALC (26.0-32.0); MEAN CORPUSCULAR HGB CONC 30.3 g/dL CAL (32.0-36.0); MONO% 5.5 % (2-13); NEUT# 6.26 thou/uL (2.00-7.15); RED BLOOD COUNT 3.34 mill/uL (4.20-5.60); RED CELL DISTRI WIDTH 16.1 % (11.5-15.5)
[2024-08-07 09:51] LABS: ALBUMIN 3.4 g/dL (3.2-5.0); BILIRUBIN, TOTAL 0.8 mg/dL (0.02-1.3); CREATININE 2.5 mg/dL (0.5-1.0); POTASSIUM 3.9 mmol/l (3.5-5.1); TOTAL PROTEIN 7.3 g/dL (6.3-8.2)
--- NOTE | 2024-08-07 11:47 | NUR ---
PT WELLED OUT FOR LATE "CAITY" TO TAKE HER HOME. REORIENTED PT TO CURRENT SITUATION. PT WAS ABLE TO BE REORIENTED.
--- NOTE | 2024-08-07 13:10 | NUR ---
Pt tells nurse she "wants a slow, painless " states she is lonly because her is gone, son is gone, and mother is gone. Nurse spent some time with pt to ease loneliness. Pt reports "feeling a little better".
[2024-08-07 15:21] VITALS: BP 115/59
--- NOTE | 2024-08-07 17:35 | NUR ---
pt mildly confused but able to be reoriented at this time.
[2024-08-07 18:46] VITALS: BP 123/46
--- NOTE | 2024-08-07 20:14 | NUR ---
PT ALERT TO SELF, ABLE TO MAKE SOME NEEDS KNOWN. STAFF TO ANTICIPATE NEEDS. PT SR WITH 1AVB PER ED. TX DENIES CP, SOB OR DISTRESS AT THIS TIME. PT HAS NOT MADE ANY COMMENTS ABOUT "WANTING TO " REPORTED FROM PREVIOUS SHIFT. LS PT NOTED WITH SOILED BRIEF, AND LARGE LOOSE BROWN BM. PT GIVEN GOOD COMPLETE BRANDY CARE, CREAM APPLIED TO REDDENED AREAS, AND NEW PUREWICK CATHETER APPLIED. TX TOLERATED WELL. CALL LIGHT IN REACH. WILL MONITOR.
[2024-08-07 20:15] VITALS: BP 123/46
[2024-08-08] VITALS (10 sets, daily range): BP systolic 109–137; BP diastolic 40–57
--- NOTE | 2024-08-08 00:15 | NUR ---
PT RESTING WITH EYES CLOSED AT THIS TIME. [place] OCCASIONALLY CALLING OUT FOR" THOMAS" , PT'S . PT REDIRECTS WITH EASE. RESP EVEN/UNLABORED. PT DENIES PAIN OR DISTRESS AT THIS TIME. CALL LIGHT IN REACH, BED ALARM INTACT. WILL MONITOR.
--- NOTE | 2024-08-08 04:20 | NUR ---
PT RESTING IN BED WATCHING TV, PUREWICK INTACT DRAINING TO WALL SUCTION. RESP EVEN/ UNLABORED, NO DISTRESS NOTED AT THIS TIME. CALL LIGHT IN REACH. BED ALARM INTACT. WILL MONITOR.
[2024-08-08 05:11] LABS: BASO% 0.4 % (0-3); EOS% 2.8 % (0-8); HEMATOCRIT 31.1 % (37.0-47.0); HEMOGLOBIN 9.2 g/dl (12.0-16.0); IMMATURE GRANULOCYTES 0.1 % (0.0-5.0); LYMPH% 34.2 % (15-41); MEAN CELL VOLUME 101.6 fL CALC (80.0-100.0); MEAN CORPUSCULAR HGB 30.1 pG CALC (26.0-32.0); MEAN CORPUSCULAR HGB CONC 29.6 g/dL CAL (32.0-36.0); MONO% 7.4 % (2-13); NEUT# 5.6 thou/uL (2.00-7.15); NEUT% 55.1 % (42-76); RED BLOOD COUNT 3.06 mill/uL (4.20-5.60); RED CELL DISTRI WIDTH 16.1 % (11.5-15.5)
[2024-08-08 05:18] LABS: ALBUMIN 2.9 g/dL (3.2-5.0); CREATININE 2.2 mg/dL (0.5-1.0); MAGNESIUM 1.8 mg/dL (1.6-2.3); POTASSIUM 3.3 mmol/l (3.5-5.1); TOTAL PROTEIN 6.5 g/dL (6.3-8.2)
[2024-08-08 05:20] LABS: BILIRUBIN, TOTAL 0.4 mg/dL (0.02-1.3)
--- NOTE | 2024-08-08 07:31 | NUR ---
PT IS ALERT, ORIENTED TO SELF, CITY AND STATE, REPORTS CURRENT YEAR "1906" YELLING, "I WANT TO GET OUT OF HERE"
--- NOTE | 2024-08-08 07:37 | NUR ---
PATIENT WAS UPSET DUE TO WANTING TO GO HOME THIS MORNING. HAS NO C/O PAIN BUT REFUSED CARE UNABLE TO ASSES PATIENT LUNG SOUNDS. IV SITE INTACT. ABLE TO MAKE NEEDS KNOWN
--- NOTE | 2024-08-08 08:14 | NUR ---
PT PULLED THE TELE MONITOR OFF, NURSE TALKED TO PT ABOUT PUTTING THE TELE MONITOR BACK ON AND PT YELLED "I TAKE HEART MEDICATION, I DONT NEED THAT, GET OUTA HERE, I WILL CALL THE POLICE".
[2024-08-08] MEDS ORDERED: NYSTATIN 15 GM/TUBE TOP SCH (09:00)
[2024-08-08] MEDS ORDERED: POTASSIUM CHLORIDE 20MEQ 100 ML IV SCH (11:30)
--- NOTE | 2024-08-08 12:00 | NUR ---
PATIENT RESTING IN BED STILL CALLING OUT NO C/O PAIN . ALSO PATIENT PULLED IV OUT NEW IV PLACED . K+ ORDER CHANGED FROM IV TO PO
--- NOTE | 2024-08-08 13:37 | NUR ---
patient removed IV / doctor order po same dose 20emq
[2024-08-08] MEDS ORDERED: POTASSIUM CHLORIDE 20 MEQ/TAB PO SCH (14:00)
--- NOTE | 2024-08-08 16:00 | NUR ---
PATIENT RESTING IN BED /STILL SCREAMS OUT AND PULLED IV OUT . HAD IV TEAM PUT ANOTHER ON 20 RT FARM.
--- NOTE | 2024-08-08 20:00 | NUR ---
PT ALERT, SITTING UP IN BED. AFEBRILE, CONTINUES ON TELE, MONITORED BY ED. PT DENIES CP, SOB OR DISTRESS AT THIS TIME. RESP EVEN/UNLABORED, LS CLEAR THROUGHOUT. ABDOMEN SOFT, NON-TENDER. BSX4 ACTIVE. LBM 3-8-25. PUREWICK INTACT DRAINING TO WALL SUCTION. BED ALARM INTACT. CALL LIGHT IN REACH. WILL MONITOR.
[2024-08-09] VITALS (7 sets, daily range): BP systolic 110–121; BP diastolic 46–69
--- NOTE | 2024-08-09 | NUR ---
PT RESTING IN BED WITH EYES CLOSED, NO DISTRESS NOTED AT THIS TIME. ZOSYN INFUSING ORDERED, NO REDNESS OR S/S OF INFILTRATION NOTED AT SITE. BED ALARM INTACT, CALL LIGHT IN REACH. WILL MONITOR.
--- NOTE | 2024-08-09 04:15 | NUR ---
PT RECIEVING COMPLETE BED BATH, TOLERATED WELL. PT INC OF BM, GOOD BRANDY CARE PROVIDED, NYSTATIN APPLIED ORDERED. NO DISTRESS NOTED AT THIS TIME, CALL LIGHT IN REACH . WILL MONITOR.
--- NOTE | 2024-08-09 08:06 | NUR ---
PATIENT RESTING IN BED NO C/O PAIN OR DISCOMFORT. HAD BLOOD DRAW THIS MORNING WITH NO PROBLEM. IV SITE INTACT. ABLE TO MAKE NEEDS KNOWN
[2024-08-09 08:15] LABS: BASO% 0.5 % (0-3); EOS% 3.8 % (0-8); HEMATOCRIT 29.8 % (37.0-47.0); HEMOGLOBIN 9.1 g/dl (12.0-16.0); IMMATURE GRANULOCYTES 0.1 % (0.0-5.0); LYMPH% 34.4 % (15-41); MEAN CELL VOLUME 96.1 fL CALC (80.0-100.0); MEAN CORPUSCULAR HGB 29.4 pG CALC (26.0-32.0); MEAN CORPUSCULAR HGB CONC 30.5 g/dL CAL (32.0-36.0); MONO% 6.3 % (2-13); NEUT# 5.03 thou/uL (2.00-7.15); NEUT% 54.9 % (42-76); RED BLOOD COUNT 3.1 mill/uL (4.20-5.60); RED CELL DISTRI WIDTH 16.2 % (11.5-15.5)
[2024-08-09 08:53] LABS: BILIRUBIN, TOTAL 0.5 mg/dL (0.02-1.3); MAGNESIUM 1.8 mg/dL (1.6-2.3); POTASSIUM 3.6 mmol/l (3.5-5.1); TOTAL PROTEIN 6.5 g/dL (6.3-8.2)
[2024-08-09] MEDS ORDERED: Meropenem 500 MG in SODIUM CHLORIDE 0.9% 50 ML IV SCH (11:00)
--- NOTE | 2024-08-09 12:07 | NUR ---
PATIENT IS SLEEPING AT THIS TIME STILL RECEIVING IV TX
--- NOTE | 2024-08-09 18:30 | NUR ---
PATIENT HAS BEEN RESTING MOST OF THE DAY BEEN TIRED .HAS NO C/O PAIN AT THIS TIME
[2024-08-09] MEDS ORDERED: Meropenem 500 MG in SODIUM CHLORIDE 0.9% 100 ML IV SCH (23:00)
[2024-08-10] VITALS: BP 110/52
[2024-08-10 00:28] VITALS: BP 110/52
[2024-08-10 04:00] VITALS: BP 108/42
[2024-08-10 05:24] VITALS: BP 108/42
[2024-08-10 05:27] LABS: ALBUMIN 2.7 g/dL (3.2-5.0); BILIRUBIN, TOTAL 0.3 mg/dL (0.02-1.3); CREATININE 1.9 mg/dL (0.5-1.0); MAGNESIUM 1.6 mg/dL (1.6-2.3); POTASSIUM 3.4 mmol/l (3.5-5.1); TOTAL PROTEIN 6.2 g/dL (6.3-8.2)
[2024-08-10 05:40] LABS: BASO% 0.4 % (0-3); EOS% 3.7 % (0-8); HEMATOCRIT 29.2 % (37.0-47.0); HEMOGLOBIN 8.9 g/dl (12.0-16.0); IMMATURE GRANULOCYTES 0.3 % (0.0-5.0); LYMPH% 32.1 % (15-41); MEAN CELL VOLUME 95.7 fL CALC (80.0-100.0); MEAN CORPUSCULAR HGB 29.2 pG CALC (26.0-32.0); MEAN CORPUSCULAR HGB CONC 30.5 g/dL CAL (32.0-36.0); NEUT# 5.92 thou/uL (2.00-7.15); NEUT% 57.5 % (42-76); RED BLOOD COUNT 3.05 mill/uL (4.20-5.60); RED CELL DISTRI WIDTH 16.4 % (11.5-15.5)
[2024-08-10 07:10] VITALS: BP 108/53
--- NOTE | 2024-08-10 07:47 | NUR ---
PATIENT LAYING IN BED. PATIENT A&OX4 AND ABLE TO MAKE NEEDS KNOWN. PATIENT DENIES ANY NEEDS AT THIS TIME.
[2024-08-10] MEDS ORDERED: POTASSIUM CHLORIDE 20 MEQ/TAB PO SCH (09:00)
[2024-08-10] MEDS ORDERED: ERTAPENEM1 G1 IV (11:05)
--- NOTE | 2024-08-10 11:56 | NUR ---
PATIENT RESTING IN BED AT THIS TIME WITH DAUGHTER AT HER SIDE. WILL BED DC TO A SN[facility] TODAY
--- NOTE | 2024-08-10 13:38 | NUR ---
Discharge instructions given. Patient verbalizes understanding of same. Discharged in stable condition via Wheelchair to [facility] with staff. All belongings sent with pt. IV REMOVED TELE ROMVED . BELONGINGS SENT WITH HER AND DAUGHTER. DISCHARGE INSTRUCTIONS REVIEVED
== END 2024-08-10 13:35 | DRG 392 ==
LOC: ED 19:54 → ED-I 08-06 01:16 → ED 08-06 01:29 → MS2 08-06 01:30
PROVIDERS: Internal Medicine; Nurse Practitioner Family; ADMIT Internal Medicine; ATTEND Internal Medicine
DX: K59.00 Constipation, unspecified (principal); N17.9 Acute kidney failure, unspecified; K62.5 Hemorrhage of anus and rectum; N13.39 Other hydronephrosis; N39.0 Urinary tract infection, site not specified; K52.9 Noninfective gastroenteritis and colitis, unspecified; Z16.12 Extended spectrum beta lactamase (ESBL) resistance; B96.20 Unspecified Escherichia coli [E. coli] as the cause of diseases classified elsewhere; E87.6 Hypokalemia; F03.90 Unspecified dementia, unspecified severity, without behavioral disturbance, psychotic disturbance, mood disturbance, and anxiety; I12.9 Hypertensive chronic kidney disease with stage 1 through stage 4 chronic kidney disease, or unspecified chronic kidney disease; N18.30 Chronic kidney disease, stage 3 unspecified; H91.90 Unspecified hearing loss, unspecified ear; E78.5 Hyperlipidemia, unspecified; Z86.718 Personal history of other venous thrombosis and embolism; Z87.442 Personal history of urinary calculi; Z66 Do not resuscitate; Z86.73 Personal history of transient ischemic attack (TIA), and cerebral infarction without residual deficits
CPT/HCPCS: J0696; J2185; J2543; J3480